=== PATIENT | female | born 1960 | race Caucasian/White ===

== ENCOUNTER 2019-03-04 05:35 | Inpatient (IN) | payer OTHER ==
[~2019-03-04 05:35] MED LIST: Buffered Lidocaine 1% SYRIN* 1 ML/SYRINGE INTRADERM ONE
[2019-03-04] MEDS ORDERED: Lactated Ringers 1000 ML Bag* 1,000 ML IV SCH ×2 (06:00→12:00)
[2019-03-04] MEDS ORDERED: Famotidine IV* 10 MG/ML 2 ML (20 mg) IV ONE (06:00)
[2019-03-04] MEDS ORDERED: Dexamethasone IV* 4 MG/ML 1 ML (4 MG) IV SLOW PU ONE (06:00)
[2019-03-04] MEDS ORDERED: Buffered Lidocaine 1% SYRIN* 1 ML/SYRINGE INTRADERM ONE (06:09)
[2019-03-04] MEDS ORDERED: ceFAZolin 2 GM PREMIX in ORs 2 GM/50 ML BAG ONE (06:09)
[2019-03-04] MEDS ORDERED: Dexamethasone IV* 4 MG/ML 1 ML (4 MG) ONE (06:09)
[2019-03-04] MEDS ORDERED: Famotidine IV* 10 MG/ML 2 ML (20 mg) ONE (06:09)
[2019-03-04] MEDS ORDERED: Thrombin 5,000 UNITS* 1 APPLIC KIT - topical use - TOPICAL ONE (06:57)
[2019-03-04] MEDS ORDERED: Lidocain 1% EPI 1:100,000 * 30 ML MDV ONE (06:57)
[2019-03-04] MEDS ORDERED: Bacitracin INJECTION* 50,000 UNITS ONE (06:57)
[2019-03-04] MEDS ORDERED: Lidocaine 1% MPF wEPI 200,000* 30 ML SDV ONE (07:01)
[2019-03-04] MEDS ORDERED: Succinylcholine* 20 MG/ML 10 ML VIAL ONE (07:23)
[2019-03-04] MEDS ORDERED: Propofol* 10 MG/ML 20 ML BTL ONE (07:23)
[2019-03-04] MEDS ORDERED: Midazolam* 1 MG/ML 5 ML VIAL (5 MG) ONE (07:23)
[2019-03-04] MEDS ORDERED: Lidocaine 2% PF * 5 ML VIAL ONE (07:23)
[2019-03-04] MEDS ORDERED: Remifentanil* 2 MG VIAL ONE (07:24)
[2019-03-04] MEDS ORDERED: fentaNYL* 50 MCG/ML 2 ML VIAL (100 MCG VIAL) ONE ×4 (07:24→12:10)
[2019-03-04] MEDS ORDERED: DiMENhydriNATE IV* 50 MG/ML VIAL IV PUSH PRN (07:42)
[2019-03-04] MEDS ORDERED: oxyCODONE/Acetamin 5/325 MG* TAB PO PRN (07:42)
[2019-03-04] MEDS ORDERED: HYDROcodone/ACETAMIN 5-325 MG* 1 TAB PO PRN (07:42)
[2019-03-04] MEDS ORDERED: Scopolamine 1.5 mg* PATCH TRANSDERM PRN (07:42)
[2019-03-04] MEDS ORDERED: Naloxone* 0.4 MG/ML 1 ML VIAL IV PRN (07:42)
[2019-03-04] MEDS ORDERED: EPHEDrine (Pressors)* 50 MG/ML VIAL ONE (08:26)
[2019-03-04] MEDS ORDERED: Ondansetron INJ* 2 MG/ML VIAL ONE (10:19)
[2019-03-04] MEDS ORDERED: Magnesium Hydroxide LIQ* 30 ML UDC PO PRN (11:13)
[2019-03-04] MEDS ORDERED: Scopolamine 1.5 mg* PATCH ONE (11:14)
[2019-03-04] MEDS ORDERED: DiMENhydriNATE IV* 50 MG/ML VIAL ONE (11:14)
[2019-03-04] MEDS ORDERED: Ketorolac INJ* 30 MG/ML 1 ML VIAL ONE (11:29)
[2019-03-04] MEDS ORDERED: Ketorolac INJ* 30 MG/ML 1 ML VIAL IV PUSH ONE (11:30)
[2019-03-04] MEDS ORDERED: Acetaminophen IV 1GM/100ML * 1,000 MG/100 ML VIAL IVPB ONE (11:31)
[2019-03-04] MEDS ORDERED: Acetaminophen IV 1GM/100ML * 100 ML ONE (11:46)
[2019-03-04] MEDS: fentaNYL* 50 MCG/ML 2 ML VIAL (100 MCG VIAL) IV PRN ×2 (12:11→12:24)
--- NOTE | 2019-03-04 13:33 | OP ---
DATE OF OPERATION: 03/04/19 - ROOM #350 DATE OF : 60 SURGEON: Kristie Teran MD CARCASS SPLITTER: ROSAURA Cheung ANESTHESIA: General. PRE-OP DIAGNOSES: 1. Degenerative disk disease. 2. Myelopathy. POST-OP DIAGNOSES: 1. Degenerative disk disease. 2. Myelopathy. OPERATIVE PROCEDURE: The patient underwent anterior cervical diskectomy and fusion at C5-6 and C6-7 with PEEK interbody cages, locally harvested bone graft , DBX and plate with intraoperative monitoring and intraoperative microscope. ESTIMATED BLOOD LOSS: 10 cc. COMPLICATIONS: None. SUMMARY: The patient is a very pleasant 58-year-old female with complaints of neck pain radiating to both upper extremities and signs of early myelopathy with MRI findings consistent with degenerative disk disease with significant stenosis at C5- 6 and 6-7 with cord signal changes. After failing conservative treatment options, she was offered the option of surgical intervention in the form of anterior cervical diskectomy and fusion. After explaining expectations , limitations, and possible complications of the procedure to the patient and her with complications including, but not limited to, bleeding, infection, risk of injury to adjacent structures, paralysis, , need for additional procedure, anesthesia risks, stroke, blindness, cancer, instability, hardware failure, adjacent level disease, pseudoarthrosis, recurrent laryngeal nerve injury, spinal fluid leak, need for additional procedures in the future, need for tracheostomy, gastrostomy, prolonged ICU stay, prolonged hospitalization, prolonged rehabilitation, paralysis, Brian syndrome, and anesthesia risk, the patient was agreeable to proceed with surgery and informed consent was obtained. The patient and her understood that her condition may not improve and in fact, may get worse after surgery and that she may need to have additional procedures in the future. They also understood that the operative plan may be modified according to intraoperative findings and conditions and that case may be abandoned or done in more than 1 stage and that she may need to have additional procedures in the future. They understood that the purpose of the procedure is to stabilize the patient's condition. DESCRIPTION OF PROCEDURE: The patient was brought to the operating room and was placed under general anesthesia by the anesthesia team. She was carefully positioned supine on the Mario table and all bony prominences were meticulously padded. Her skin was prepped and draped in the standard fashion. After appropriate surgical pause and patient identification, a small transverse incision on the right of the midline over the C6 vertebral body was marked in the skin with use of intraoperative fluoroscopic imaging. The skin incision was infiltrated with local anesthetic and #10 surgical blade was used to incise the skin. This was carried down to the platysma with Bovie cautery and the skin was undermined and then the platysma was gently elevated and divided with sharp dissection. The platysma was gently undermined and self-retaining retractors were introduced further into the field. The plane between the medial border of the sternocleidomastoid and the medial structures was then gently developed and the anterior portion of the vertebral column was readily identified after incising the prevertebral fascia. After confirming the correct surgical level with intraoperative fluoroscopic imaging, self-retaining retractors were introduced further into the field. Apfelbaum maneuver was performed and Bergheim pins were placed in the C5, C6, and C7 vertebral bodies. Bergheim pin retractor was inserted and under microscopic magnification, diskectomy was performed at the C5-6 level with preparation of the end plate while locally harvested bone graft was saved for the arthrodesis part of the procedure. The diskectomy and disk space preparation was performed with a 15 surgical blade, pituitary rongeurs, curettes, Kerrison punches, and high speed drill. A partial corpectomy of the superior part of the C6 vertebral body was performed to confirm excellent decompression of the thecal sac. After the posterior longitudinal ligament was divided and at the end of the diskectomy, the thecal sac was found to be free of any pressure phenomenon as well as the foramina was found to be completely open. After confirmation of meticulous hemostasis and copious irrigation and meticulous inspection and after appropriate sizing, a 9 mm height PEEK interbody cage was inserted after being filled with locally harvested bone graft and DBX. The Bergheim pin on the C5 vertebral body was then removed and the retractors were gently removed and repositioned over the C6-7 disk space. Every time, the retractors were positioned, the Apfelbaum maneuver was performed. The diskectomy and preparation of the disk space was repeated with the same manner for the C6-7 level. A 7-mm height PEEK interbody cage was inserted and after removal of the Bergheim pins, an appropriate size titanium 0 Medtronic plate was inserted and secured in place with titanium screws. Intraoperative fluoroscopic imaging confirmed optimal placement of all hardware. The screws were then finally tightened and the locking mechanism was engaged. After copious irrigation and confirmation of meticulous hemostasis and meticulous inspection, the self- retaining retractors were removed and the wound was closed by layers with over a Richard drain, which was tunneled through a separate stab wound incision. The platysma was approximated with 2-0 interrupted Vicryl sutures. The subcutaneous tissue was approximated with 2-0 inverted interrupted Vicryl sutures and the skin was covered with Dermabond. At the end of the procedure, all counts were reported to be correct. The patient remained hemodynamically stable throughout the case and intraoperative electrophysiological monitoring remained stable throughout the case. The case was done with the assistance of surgical PA because of the complexity of the case. The patient was then extubated and was transferred to Recovery in excellent condition. [id number] #: [id number]
[2019-03-04] MEDS: HYDROcodone/ACETAMIN 5-325 MG* 1 TAB PO PRN ×3 (14:22→23:33)
[2019-03-05] MEDS ORDERED: LR IV ONE (04:40)
[2019-03-05] MEDS: Ondansetron INJ* 2 MG/ML VIAL IV PRN ×3 (04:53→15:51)
[2019-03-05 05:03] LABS: Hematocrit 36 % (35-47); Hemoglobin 11.9 g/dL (12.0-16.0)
[2019-03-05 05:14] LABS: Mean Corpuscular HGB Conc 34 g/dL (31-36); Mean Corpuscular Hemoglobin 29 pg (27-31); Mean Corpuscular Volume 86 fL (80-97); Mean Platelet Volume 7.6 fL (7.4-10.4); Platelet Count 176 10^3/uL (150-450); Red Blood Count 4.06 10^6 /uL (3.70-4.87); Red Cell Distribution Width 14 % (10-15); White Blood Count 7.9 10^3/uL (3.5-10.8)
[2019-03-05] MEDS ORDERED: Polyethylene Glycol 3350* 17 GM PACKET PO PRN (05:18)
[2019-03-05 05:24] LABS: BUN/Creatinine Ratio 13.9 (8-20); Calcium 8.8 mg/dL (8.6-10.3); EGFR African American 100.7 (>60); EGFR Non-African American 83.2 (>60); Potassium 4.1 mmol/L (3.5-5.0)
--- NOTE | 2019-03-05 07:07 | CONS ---
CONSULTATION NOTE: DATE OF CONSULT: 03/05/19 TIME OF EVALUATION: 0500 REQUESTING PHYSICIAN FOR CONSULTATION: Dr. Teran REASON FOR CONSULT: Evaluation for low blood pressure. HISTORY OF PRESENT ILLNESS: This is a 58-year-old female who has a past medical history of mild obstructive sleep apnea, chronic fatigue, migraines, and chronic shoulder and neck pain, who was admitted electively by Dr. Teran for C5-C6, C6- C7 diskectomy and fusion. She underwent the procedure on 03/04/19 for degenerative disk disease and myelopathy. The patient tolerated the procedure well. Since then the patient had a few episodes of low blood pressure and some lightheadedness and there was concern and Dr. Teran requested the hospitalist service to evaluate the patient. The patient has been up and able to walk around since her surgery. She states she was slight lightheaded and nausea and then began dry heaving during my encounter. No shortness of breath, no abdominal pain, no chest pain. She states she normally has a low blood pressure. It runs around 190 to 100 systolic. Otherwise, remaining review of systems is negative. PAST MEDICAL HISTORY: 1. Obstructive sleep apnea, not on CPAP. 2. Cervicalgia. 3. Degenerative disk disease with myelopathy. 4. History of migraines. 5. Fibromyalgia. MEDICATIONS: 1. Famciclovir 500 mg p.o. b.i.d. at any time of outbreak. 2. Premarin cream. 3. Naproxen 500 mg b.i.d. 4. Cyclobenzaprine 5 mg 1 to 2 tabs t.i.d. as needed. 5. Rizatriptan as needed for migraines. 6. Vitamin C 500 mg daily. 7. Multivitamin daily. 8. Vitamin B6 daily. 9. Vitamin B12. 10. Probiotic. 11. Aimovig 70 mg injection monthly. ALLERGIES: No known drug allergies. FAMILY HISTORY: Both parents are from old age. SOCIAL HISTORY: The patient quit smoking in 1978. She smoked for 7 years. She drinks 1 to 2 times per week. She lives with her who is her healthcare proxy. Independent of her ADLs. REVIEW OF SYSTEMS: A 14-point review of systems as mentioned in the HPI, otherwise negative. PHYSICAL EXAM: Vitals: Temp 98.5, pulse rate 61, respiratory rate 16, oxygen saturation 97% on 2 L, blood pressure 86/92. HEENT: Head normocephalic. Pupils are equal and reactive, anicteric. Neck: The patient has neck brace in place. Cardiac: Regular rate and rhythm. Soft systolic murmur heard throughout. Respiratory: Diminished breath sounds. No wheezing, rhonchi, or rales. Abdomen: Soft, nontender, and nondistended. Extremities: No clubbing, cyanosis, or edema. Neurologic: Alert and oriented x3. No gross focal neurologic deficits. ASSESSMENT: This is a 58-year-old female who underwent anterior cervical diskectomy infusion of C5-C6 and C6-C7 for degenerative disk disease and myelopathy, now with hypotension. 1. Hypotension. Assessment: I suspect this is possibly due to anesthesia wearing off with some volume depletion. She runs low at baseline. She does have some associated lightheadedness. Plan: We will check labs including H and H to make sure there is no acute blood loss contributing to this. We will give her 1 L of LR and follow up on her labs. 2. Postop day 1 for cervical fusion, diskectomy per our surgery service. 3. Constipation: We will put her on bowel regimen. 4. FEN: Regular diet. 5. DVT prophylaxis: Per neurosurgery service. Thank you for this consultation. We will follow along with you. PATIENT TIME: Greater than 30 minutes was spent doing the consultation, more than half the time spent in direct patient contact. [id number] #: [id number]
[2019-03-05] MEDS: HYDROcodone/ACETAMIN 5-325 MG* 1 TAB PO PRN (07:16)
[2019-03-05] MEDS ORDERED: Scopolamine 1.5 mg* PATCH ONE (07:26)
[2019-03-05] MEDS ORDERED: Metoclopramide IV* 5 MG/ML 2 ML VIAL ONE (07:29)
[2019-03-05] MEDS ORDERED: Metoclopramide IV* 5 MG/ML 2 ML VIAL IV PRN (07:41)
[2019-03-05] MEDS ORDERED: PROCHLORPERAZINE INJ 5 MG/ML 2 ML VIAL IV PRN (09:26)
[2019-03-05] MEDS: Morphine INJ* 2 MG/ML 1 ML SYRINGE (TWO MG - NEW SYRINGE VERSION) IV PRN ×2 (09:35→15:51)
[2019-03-05] MEDS ORDERED: Ketorolac INJ* 30 MG/ML 1 ML VIAL IV PUSH ONE (09:50)
--- NOTE | 2019-03-05 09:58 | PN ---
Progress Note - Progress Note Date of Service: 03/05/19 SOAP: Subjective: 58 y/o female post ACDF of C5/C6, C6/C7, with partial corpectomy at C5/C6. Patient is has been doing well. She has experienced some episodes of low blood pressure and and dizziness, with nausea. She is being evaluated by medicine for those issues. She has notice some post operative pain, has been able to tolerate fluids by mouth, but has not eaten. She reports attempting to eat last night, but was nauseous and unable to finish meal. Patient had GERI drain, which only put out 20 overnight. Objective: Vital Signs - 8 hr 03/05/19 03/05/19 03/05/19 01:51 03:31 07:16 Temperature 98.5 F Pulse Rate 61 Respiratory 14 16 18 Rate Blood Pressure 86/42 (mmHg) O2 Sat by Pulse 97 Oximetry 03/05/19 03/05/19 03/05/19 08:00 08:13 09:35 Temperature 98.3 F Pulse Rate 58 Respiratory 16 16 18 Rate Blood Pressure 83/46 (mmHg) O2 Sat by Pulse 93 93 Oximetry General: Patient laying in bed, appears to have some discomfort. Neuro: GCS 15, A&O x 3 CN II - XII, Motor strength 5/5 in all extremities, sensation intact slight decreased on the right. Derm: surgical wound, C/D/I Drain intact. Assessment: 58 y/o fermale post ACDF POD #1, has episodes of low back pressure and nausea, but otherwise is stable. Plan: D/C drain Change nausea medication from Zofran to Reglan Consider changing pain medication Continue to encourage intake by mouth. If nausea controlled and patient able to tolerate food by mouth consider discharge home.
--- NOTE | 2019-03-05 11:43 | PN ---
Subjective Date of Service: 03/05/19 Interval History: HOSPITALIST PROGRESS NOTE Patient seen and examined at bedside. Care reviewed and d/w Leilani Torres RN. Her lightheadedness is resolved and BP is close to her baseline (SBP 90-100s). She took 2 hydrocodone earlier today and developed nausea and vomiting. Pain is 7/10. Hand numbness and clumsiness is improving. Family History: Unchanged from Admission Social History: Unchanged from Admission Past Medical History: Unchanged from Admission Objective Active Medications: Acetaminophen/Codeine Phosphate (Tylenol/Codeine 30 Mg Tab*) 1 tab PO Q4H PRN PRN Reason: PAIN Lactated Ringer's (Lactated Ringers 1000 Ml Bag*) 1,000 mls @ 75 mls/hr IV .per rate XOCHITL Last Admin: 03/05/19 02:21 Dose: 75 mls/hr Magnesium Hydroxide (Milk Of Magnesia Liq*) 30 ml PO DAILY PRN PRN Reason: CONSTIPATION Morphine Sulfate (Morphine Inj (Syringe))*) 2 mg IV Q2H PRN PRN Reason: PAIN Last Admin: 03/05/19 09:35 Dose: 2 mg Ondansetron HCl (Zofran Inj*) 4 mg IV Q6H PRN PRN Reason: NAUSEA/VOMITING Last Admin: 03/05/19 09:35 Dose: 4 mg Pharmacy Profile Note (Scopolamine Patch Remove*) 1 note PATCH OFF Q72H ONE Stop: 03/07/19 07:45 Polyethylene Glycol/Electrolytes (Miralax*) 17 gm PO DAILY PRN PRN Reason: CONSTIPATION Vital Signs - 8 hr 03/05/19 03/05/19 03/05/19 07:16 08:00 08:13 Temperature 98.3 F Pulse Rate 58 Respiratory 18 16 16 Rate Blood Pressure 83/46 (mmHg) O2 Sat by Pulse 93 93 Oximetry 03/05/19 03/05/19 03/05/19 09:35 10:17 10:36 Temperature Pulse Rate 56 Respiratory 18 18 Rate Blood Pressure 89/52 (mmHg) O2 Sat by Pulse Oximetry Oxygen Devices in Use Now: None Appearance: Pleasant lady sitting up in bed in NAD. Eyes: No Scleral Icterus Ears/Nose/Mouth/Throat: Mucous Membranes Moist Neck: - - C-collar in place Respiratory: Symmetrical Chest Expansion and Respiratory Effort, Clear to Auscultation Cardiovascular: RRR - Normal S1 and S2 Neurological: Alert and Oriented x 3, NL Muscle Strength and Tone, - - Mild sensation decrease Right hand Result Diagrams: 03/05/19 04:48 03/05/19 04:48 Assess/Plan/Problems-Billing Assessment: Mrs Sy is a 58yo F with PMH of TREE, fibromyalgia, migraine, admitted for elective anterior cervical diskectomy. Hospitalist service consulted for hypotension and lightheadedness. - Patient Problems (1) Hypotension Comment: - Likely secondary to anesthesia and mild dehydration. - SBP close to her baseline. - Continue gentle IV hydration. (2) Nausea & vomiting Comment: - Liekly secondary to hydrocodone. - D/w Dr Teran - will give one dose of Toradol for pain and monitor response, trying to avoid opiates. - Patient states she took Tylenol #3 in the past with no GI issues - will order it. - Continue Zofran PRN. (3) S/P diskectomy Comment: - S/p anterior cervical diskectomy and f usion C5-6, C6-7. - Management as per Neurosurgery. (4) DVT prophylaxis Comment: - As per Neurosurgery - SCDs. (5) Full code status Status and Disposition: Dr Rena Skaggs is patient's PCP. She'll continue to follow during hospital stay.
[2019-03-05] MEDS: Acetaminophen / Codeine* #3 (300 MG/30 MG) TAB PO PRN ×2 (13:40→19:23)
[2019-03-05] MEDS ORDERED: RIZATRIPTAN 10 MG PO ONE (16:00)
[2019-03-05] MEDS ORDERED: RIZATRIPTAN 10 MG PO PRN (17:08)
[2019-03-06] MEDS: Ondansetron INJ* 2 MG/ML VIAL IV PRN (08:26)
[2019-03-06] MEDS ORDERED: PROCHLORPERAZINE INJ 5 MG/ML 2 ML VIAL IV PRN (10:58)
--- NOTE | 2019-03-06 13:04 | PN ---
Progress Note - Progress Note Date of Service: 03/06/19 SOAP: Subjective: 58 y/o female s/p ACDF at C5/C6, C6/C7 POD # 2, she continues to have issues with nausea and has not been able to eat. It seemed that Hydrocodone was causing the nausea, so her pain medication was switched to Tylenol #3 yesterday. This morning patient reported still feeling nauseous and had one episode of vomiting. She is tolerating fluids, but continues to have issues with food. Her IV had been saline locked. She does report having history of migraine head aches that often causes nausea. Patient felt that she was starting have one yesterday and has continued today. Her blood pressures have improved since yesterday and she currently being followed by medicine for her blood pressure control and nausea. Objective: Vital Signs - 12 hr Temp Pulse Resp BP Pulse Ox 03/06/19 11:04 98.5 F 76 18 115/68 95 03/06/19 08:35 16 95 03/06/19 08:31 98.4 F 66 16 114/66 03/06/19 07:14 98.9 F 69 18 112/61 93 03/06/19 03:43 99.1 F 72 16 99/59 95 General: patient laying in bed HOB elevated with [place] J collar on. Patient is calm no NAD Neruo: GCS 15, A&O x 3, CN II - XII grossly intact, sensation intact through out with light touch, motor strength 5/5 throughout. Assessment: 58 y/o female post ACDF at C5/C6, C6/C7, neurologically intact, blood pressures have improved. She continues to have issues with nausea, tolerates liquids, has not tolerated food. Plan: 1) Follow medicine recommendations for blood pressure control and nausea. 2) Encourage patient to eat 3) Continue to ambulate 4) Get medical clearance for discharge 5)Discharge planning.
[2019-03-06] MEDS: Acetaminophen / Codeine* #3 (300 MG/30 MG) TAB PO PRN ×2 (13:25→18:44)
[2019-03-07] MEDS: Acetaminophen / Codeine* #3 (300 MG/30 MG) TAB PO PRN ×2 (03:25→07:54)
[2019-03-07] MEDS ORDERED: Scopolamine PATCH Remove* 1 NOTE MISC PATCH OFF ONE (07:44)
--- NOTE | 2019-03-07 09:34 | PN ---
Progress Note - Progress Note Date of Service: 03/07/19 SOAP: Subjective: 58 y/o female s/p ACDF of C5/C6, C6/C7 POD # 3, she reports improvement with nausea, has been able to tolerate some food by mouth. Her nausea medication was changed by medicine yesterday. Patient feels stay on her feet and has been walking with out issue. She indicates that sensation and strength in UPE has improved after surgery. Her vitals have been stable, BP has improved, patient had one episode of low blood pressure. Objective: Vital Signs - 12 hr Temp Pulse Resp BP Pulse Ox 03/07/19 08:30 100/70 03/07/19 07:54 16 03/07/19 07:52 98.2 F 58 18 88/61 95 03/07/19 05:28 16 03/07/19 03:25 18 03/07/19 03:12 98.9 F 62 17 102/64 95 03/06/19 23:39 98.5 F 58 17 99/54 98 patient laying in bed HOB elevated with [place] J collar on. Patient is calm no NAD Neruo: GCS 15, A&O x 3, CN II - XII grossly intact, sensation intact through out with light touch, motor strength 5/5 throughout. Derm: wound soft no signs of infection observed Assessment: 58 y/o female post ACDF of C5/C6, C6/C7, patient is recovering appropriately, nausea has improved. She is stable for neurosurgery stand point. Plan: 1) Discharge planning, pending medicine recommendations.
[2019-03-07 11:32] VITALS: BP 94/59
== END 2019-03-07 12:08 | disposition home or self-care (01) | DRG 472 ==
LOC: OR 05:35 → SSU 11:13 → OBSVTOIN 03-05 14:42 → SSU 03-05 18:07
PROVIDERS: ADMIT Neurological Surgery; ATTEND Neurological Surgery
PROC: 0RB30ZZ Excision of Cervical Vertebral Disc, Open Approach (ICD-10-PCS; 2019-03-04)
PROC: 0RG20A0 Fusion of 2 or more Cervical Vertebral Joints with Interbody Fusion Device, Anterior Approach, Anterior Column, Open Approach (ICD-10-PCS; principal; 2019-03-04 07:30)
DX: M50.022 Cervical disc disorder at C5-C6 level with myelopathy (principal); M47.12 Other spondylosis with myelopathy, cervical region; M50.122 Cervical disc disorder at C5-C6 level with radiculopathy; M50.023 Cervical disc disorder at C6-C7 level with myelopathy; M50.123 Cervical disc disorder at C6-C7 level with radiculopathy; E78.5 Hyperlipidemia, unspecified; M79.7 Fibromyalgia; G47.33 Obstructive sleep apnea (adult) (pediatric); R53.82 Chronic fatigue, unspecified; M54.40 Lumbago with sciatica, unspecified side; M75.42 Impingement syndrome of left shoulder; G43.109 Migraine with aura, not intractable, without status migrainosus; G89.29 Other chronic pain; K59.00 Constipation, unspecified; I95.9 Hypotension, unspecified; R11.2 Nausea with vomiting, unspecified; T40.2X5A Adverse effect of other opioids, initial encounter; Y92.239 Unspecified place in hospital as the place of occurrence of the external cause; Z88.8 Allergy status to other drugs, medicaments and biological substances; Z82.3 Family history of stroke; Z87.891 Personal history of nicotine dependence; Z83.511 Family history of glaucoma; Z82.0 Family history of epilepsy and other diseases of the nervous system
CPT/HCPCS: 36415; 72040; 76000; 80048; 83735; 85027; A9270-GY; C1713; C1776; C9359; G0378; J0330; J0690; J1100; J1240; J1885; J2001; J2250; J2270; J2405; J2704; J2765; J3010